=== PATIENT | male | born 1970 | race Caucasian/White ===

== ENCOUNTER 2021-01-13 16:10 | Emergency (ER) | payer SELFPAY ==
[~2021-01-13] VITALS: Ht 167.6 cm; Wt 82.0 kg
[2021-01-13] MEDS ORDERED: LIDOCAINE HCL/EPINEPHRINE 1%-EPI 1:100,000 50 ML VIAL INFIL ONE (17:00)
[2021-01-13] MEDS ORDERED: LIDOCAINE HCL/EPINEPHRINE 1%-EPI 1:100,000 20 ML VIAL INFIL SCH (17:29)
[2021-01-13] MEDS ORDERED: BENZONATATE 100MG CAPSULE PO ONE (19:45)
[2021-01-13 21:00] VITALS: BP 122/76
== END 2021-01-13 21:09 | disposition home or self-care (01) ==
LOC: EDBD 16:10 → ER 16:10
DX: S02.2XXA Fracture of nasal bones, initial encounter for closed fracture (principal); S01.01XA Laceration without foreign body of scalp, initial encounter; I10 Essential (primary) hypertension; W01.198A Fall on same level from slipping, tripping and stumbling with subsequent striking against other object, initial encounter; Y93.89 Activity, other specified; Y92.480 Sidewalk as the place of occurrence of the external cause; R03.0 Elevated blood-pressure reading, without diagnosis of hypertension
CPT/HCPCS: 70450; 70486; 93005; 99285; J3490